=== PATIENT | male | born 1990 | race Caucasian/White ===

== ENCOUNTER 2017-05-09 19:12 | Emergency (ER) | payer OTHER ==
[~2017-05-09] VITALS: Ht 180.3 cm; Wt 83.9 kg
--- NOTE | ~2017-05-09 | CR133 ---
[facility] A Service of [facility] & [facility] RADIOLOGY TEXT RESULTS PATIENT: PALAK MAZARIEGOS LOCATION: CFTX : 86 UNIT #: [id number] AGE: [address]: Melissa Lerma SEX: M ORDER DR: [id number] [facility] [address] [place], [place] [address] [id number] MR#: [id number] Acc #: [id number] NAME: PALAK MAZARIEGOS : 1990 SEX: M STUDY DATE/TIME: 05/09/2017 19:50 UNIT: [facility] ROOM: STUDY DESCRIPTION: CR Forearm 2 View Rt Attending Physician: Melissa Lerma Pa-C Ordering Physician: Melissa Lerma Pa-C Primary Care Physician: No Primary Care Physician MEDICAL IMAGING REPORT This report is preliminary unless electronic signature is present EXAM Right forearm. HISTORY Patient fell off the porch this evening. Arm pain. TECHNIQUE Two views of the forearm were obtained. FINDINGS AP and lateral views of the forearm show no evidence of fracture or destructive bone lesion. No periosteal elevation is seen. No radiodense foreign bodies are noted. Adjacent soft tissue structures are normal. IMPRESSION Normal right forearm. Dictated by... Alexsander Briscoe M.D. THIS IS AN ELECTRONICALLY VERIFIED REPORT Alexsander Briscoe M.D. at 05/12/2017 7:13 AM ALYSON/leigio TD: 05/10/2017 23:27 JOB #: [id number] MEDICAL IMAGING REPORT Page 1 of 1 COPY
== END 2017-05-09 20:46 | disposition home or self-care (01) ==
LOC: CFTX 19:12 → CED 19:12 → CFTX 19:54
DX: S56.911A Strain of unspecified muscles, fascia and tendons at forearm level, right arm, initial encounter (principal); F17.210 Nicotine dependence, cigarettes, uncomplicated; W01.0XXA Fall on same level from slipping, tripping and stumbling without subsequent striking against object, initial encounter; Y92.009 Unspecified place in unspecified non-institutional (private) residence as the place of occurrence of the external cause
CPT/HCPCS: 73090; 99283